=== PATIENT | male | born 1970 | race Caucasian/White ===

== ENCOUNTER 2017-02-14 20:12 | Emergency (ER) | payer MEDICAID ==
[~2017-02-14 20:12] MED LIST: ALBUTEROL INHALER IH; ASA325 MG PO; CHANTIX1 MG PO; COREG DPS12.5 MG PO; DESYREL DPS150 MG PO; DULERA 100/58.8 GM IH; IMDUR DPS60 MG PO; LIPITOR DPS40 MG PO; MIRALAX PACKET17 GM PO; NITROSTAT0.4 MG SL; OXY-CONTIN10 MG PO; PLAVIX75 MG PO; PROTONIX40 MG PO; PROVENTIL HFA6.7 GM IH; RANEXA500 MG PO; RISPERDAL2 MG PO; SPIRIVA18 MCG IH; XANAX DPS1 MG PO; ZANTAC DPS150 MG PO; ZESTRIL DPS5 MG PO; ZOLOFT DPS100 MG PO
--- NOTE | 2017-02-15 19:25 | ER ---
ADMIT: 02/14/2017 RM/LOC: ER [facility] MR#: [id number] [address] [facility] [address] [place], [place] [address] RONNI ELICEO Laureano [address] [facility] [address] [place] [address] Emergency Room Report SEX: M AGE: 46 : 1970 DATE: 02/14/2017 ADDENDUM: This patient comes to the ER because he has had swelling in both of his legs over the last 2 days. He has had a history of having CHF, and in the past, I had him on Lasix, but he is no longer taking that. He states he has shortness of breath all the time due to his heart issues and he does have shortness of breath now, but it is his normal shortness of breath. PHYSICAL EXAMINATION: EXTREMITIES: On physical exam, he does have +2 edema in his lower legs. LUNGS: His lungs are clear. ABDOMEN: His abdomen is soft. He answers questions and speaks appropriately. His chest x-ray did show increased fluid consistent with CHF. His white count was normal. Hemoglobin was 12.0. I originally wanted to start an IV and give him Lasix, however, he refused the IV and would just like to go home with Lasix, he was given 60 mg in the ER. I consulted with Dr. Bishop concerning treatment of this patient, I wrote a prescription for Lasix 60 mg daily x5 days and potassium 40 mEq 1 tab po daily x1 week. He is to follow up with Dr. Zhou , NORA Price / Carlos Peter MD / modl JOB #: [id number] CC: Carlos Peter MD, Attending Physician Edvin Zhou MD, Family Physician
[2017-05-13] MEDS ORDERED: DESYREL DPS150 MG PO (11:13)
[2017-05-13] MEDS ORDERED: LAMISIL250 MG PO (11:14)
[2017-05-13] MEDS ORDERED: MONTELUKAST SOD10 MG PO (11:22)
[2017-05-13] MEDS ORDERED: ASA325 MG PO (11:26)
== END 2017-02-14 22:30 | disposition home or self-care (01) ==
LOC: ER 20:12
DX: I11.0 Hypertensive heart disease with heart failure (principal); I50.9 Heart failure, unspecified; I10 Essential (primary) hypertension; R60.0 Localized edema; Z88.0 Allergy status to penicillin; Z79.82 Long term (current) use of aspirin; Z79.899 Other long term (current) drug therapy

== ENCOUNTER 2017-02-21 13:52 | Inpatient (IN) | payer MEDICAID ==
[~2017-02-21] VITALS: Ht 193 cm; Wt 107.3 kg
--- NOTE | ~2017-02-21 | ECH ---
Transesophageal Echocardiography Report (MATT) Demographics Patient Name ELICEO RUDOLPH Date of Study 02/25/2017 Patient Number [id number] Visit Number [id number] Date of 1970 Room Number 402 Accession Number [id number] Gender Male Age 46 year(s) Referring Abelardo Mckenzie MD Health And Safety Coordinator Ana Villatoro Physician Hilaria Mc MD [facility] Physician Interpreting Jamila Mccallum Gore Cutter Physician MD Supervising Ordering Physician Ableardo Mckenzie MD/EUGENIE SÁNCHEZ Nurse Stress [place] Demonstrator Conclusions Summary Informed consent obtained. Transesophageal echocardiogram was done under moderate sedation . Left ventricular EF is 50% There is no thrombus in the left atrial appendage. Informed consent was obtained, bubble study was done, there is no evidence for a PFO or ASD. Mild mitral regurgitation by color Doppler. Mild tricuspid regurgitation by color Doppler. Mild atheroma noted in the descending aorta. No evidence of endocarditis. Procedure Type of Study MATT procedure:MATT SF. Procedure Date Date: 02/25/2017 Start: 09:58 AM Technical Quality: Adequate visualization Indications:CVA and pacemaker/defibrillator. Additional Indications:Bacteremia Appropriate Use Criteria: 9 Height: 76 inches Weight: 247 pounds BSA: 2.42 m Rhythm: Within normal limits HR: 71 bpm BP: 143/86 mmHg O2 Saturation: 95 % MATT Performed By: Jacky Marino MD Type of Anesthesia: Moderate sedation Allergies - Penicillin. Findings Left Atrium There is no thrombus in the left atrial appendage. Informed consent was obtained, bubble study was done, there is no evidence for a PFO or ASD. Mitral Valve Normal mitral valve structure and function. Mild mitral regurgitation by color Doppler. Aortic Valve Normal aortic valve structure and function. Tricuspid Valve Normal tricuspid valve structure and function. Mild tricuspid regurgitation by color Doppler. Pulmonic Valve The pulmonic valve is not well visualized. Miscellaneous Mild atheroma noted in the descending aorta. Contractility Score LV regional wall motion:(0-Non visualized 1-Normal 2-Hypokinesis 3-Akinesis 4-Dyskinesis 5-Aneurysm) Signature
--- NOTE | ~2017-02-21 | ECH ---
Transthoracic Echocardiography Report (TTE) Demographics Patient Name ELICEO RUDOLPH Date of Study 02/22/2017 Patient Number [id number] Visit Number [id number] Date of 1970 Room Number 402 Accession Number [id number] Gender Male Age 46 year(s) Referring Abelardo Mckenzie MD Meter Installer And Remover Ruba Coley [facility] Physician Physician Interpreting Sierra Cuevas MD Chemical Supervisor Physician Supervising Ordering Physician Abelardo Mckenzie MD/EUGENIE SÁNCHEZ Nurse Stress Outboard System Operator Conclusions Summary Technically fair exam. The estimated left ventricular ejection fraction is 50-55%. Mild to moderate left ventricular hypertrophy. Mild tricuspid regurgitation by color Doppler. There is mild pulmonary hypertension. The pulmonary pressure (RVSP) is 41 mmHg. Trivial pulmonic valve regurgitation by color Doppler. Procedure Type of Study TTE procedure:Echo Complete SF. Procedure Date Date: 02/22/2017 Start: 08:22 AM Technical Quality: Fair due to body habitus. Indications:Shortness of breath, Hypotension, Coronary artery disease and Ischemic Cardiomyopathy. Appropriate Use Criteria: 9 Height: 76 inches Weight: 247 pounds BSA: 2.42 m Rhythm: Within normal limits HR: 81 bpm BP: 121/69 mmHg Allergies - Penicillin. M-Mode/2D Measurements LV Diastolic Dimension: 5.52 cm LV Systolic Dimension: 4.05 cm LV Septum Diastolic: 1.31 cm LV PW Diastolic: 1.51 cm AO Root Dimension: 2.83 cm Cardiac Output: 6.75 l/min LA Dimension: 3.76 cm Cardiac Index: 2.79 l/min*m RV Diastolic Dimension: 4.9 cm LA volume index: 31 ml/m LVOT: 2.17 cm LVOT VTI: 22.55 cm LV Stroke volume: 83.36 ml LV Stroke volume index: 34.45 ml/m Doppler Measurements AV Peak Velocity: 1.3 m/s MV Peak E-Wave: 0.93 m/s AV Peak Gradient: 6.76 mmHg MV Peak A-Wave: 0.62 m/s AV Mean Gradient: 3.83 mmHg MV E/A Ratio: 1.52 LVOT Peak Velocity: 1.31 m/s MV P1/2t: 51.7 msec AV Area (Continuity):3.62 cm MV Deceleration Time: 174 msec TR Velocity:3 m/s MV Area (PHT): 4.26 cm TR Gradient:36 mmHg PV Peak Velocity: 0.93 m/s Estimated RAP:5 mmHg PV Peak Gradient: 3.45 mmHg Estimated RVSP: 41 mmHg Estimated PASP: 41 mmHg Findings Left Ventricle The left ventricle is normal in size . Mild to moderate left ventricular hypertrophy. Diastolic assessment reveals normal relaxation. Right Ventricle Device lead noted in the right ventricle. Right ventricle not well seen. Left Atrium Normal left atrial size. Right Atrium Device lead seen in the right atrium. Mitral Valve Normal mitral valve structure and function. Mild mitral regurgitation by color Doppler. Aortic Valve Normal aortic valve structure and function. Tricuspid Valve Normal tricuspid valve structure and function. Mild tricuspid regurgitation by color Doppler. There is mild pulmonary hypertension. The pulmonary pressure (RVSP) is 41 mmHg. Pulmonic Valve Normal pulmonic valve structure and function. Trivial pulmonic valve regurgitation by color Doppler. Pericardial Effusion No evidence of pericardial effusion. Miscellaneous Visualized portions of the aortic root and ascending aorta appear normal in size. Pleural Effusion No evidence of pleural effusion. Contractility Score LV regional wall motion:(0-Non visualized 1-Normal 2-Hypokinesis 3-Akinesis 4-Dyskinesis 5-Aneurysm) Signature
--- NOTE | ~2017-02-21 | ECH ---
Transthoracic Echocardiography Report (TTE) Demographics Patient Name ELICEO RUDOLPH Date of Study 02/23/2017 Patient Number [id number] Visit Number [id number] Date of 1970 Room Number 402 Accession Number [id number] Gender Male Age 46 year(s) Referring Abelardo Mckenzie MD Leather Skinner Ana Villatoro Physician [facility] Physician Interpreting Cee SÁNCHEZ Advanced Practice Rn Physician Garth Supervising Ordering Physician Abelardo Mckenzie MD/EUGENIE SÁNCHEZ Nurse Stress Coroner'S Juror Conclusions Summary Limited exam for bubble study only. Bubble study was done, there is no evidence for a PFO or ASD. Recommendation The patient will be given the results of this study by the physician who ordered the exam. Procedure Type of Study TTE procedure:Echo Limited SF. Procedure Date Date: 02/23/2017 Start: 10:27 AM Technical Quality: Good visualization Additional Indications:Right sided weakness Appropriate Use Criteria: 9 Height: 76 inches Weight: 247 pounds BSA: 2.42 m Rhythm: Within normal limits HR: 67 bpm BP: 135/84 mmHg Allergies - Penicillin. Findings Left Atrium Informed consent was obtained, bubble study was done, there is no evidence for a PFO or ASD. Contractility Score LV regional wall motion:(0-Non visualized 1-Normal 2-Hypokinesis 3-Akinesis 4-Dyskinesis 5-Aneurysm) Signature
--- NOTE | 2017-02-24 17:26 | CO ---
ADMIT: 02/21/2017 RM/LOC: 402 [facility] MR#: [id number] [id number] [place], [place] [address] ELICEO RUDOLPH [address] [facility] [address] [place] [address] Consultation SEX: M AGE: 46 : 1970 DATE OF CONSULTATION: 02/23/2017 ATTENDING PHYSICIAN: Edvin Zhou CONSULTING PHYSICIAN: Osmany Stubbs MD REASON FOR CONSULTATION: Stroke alert. HISTORY OF PRESENT ILLNESS: The patient is a 46-year-old gentleman, who developed right-sided weakness, slurred speech, and some numbness, last time normal was 7:15, stroke was paged out at 8:22 a.m. On initial examination, the patient has truly dysarthria and appears to be numbness on right side. The weakness is already resolved, however, it is limited examination because of the right lower extremity pain. The patient is not a tPA candidate secondary to ongoing sepsis and thrombocytopenia. Platelet count is 67,[address] of the head did not show any acute changes. The patient was admitted for sepsis, so far no known sores. He has gram- negative rods in blood culture. His urine grows gram-positive organism, however. As there is extreme radicular pain to the right leg, there is suspicion that he could have epidural abscess. However, the patient was on aspirin and Plavix. Therefore, a myelogram can be obtained. The MRI cannot be performed secondary to pacemaker. The patient is allergic to penicillin. PAST MEDICAL HISTORY: Ischemic cardiomyopathy, AICD with pacemaker, coronary artery disease, COPD, heart failure, anxiety, depression, hyperlipidemia, and cardiac arrhythmias. PAST SURGICAL HISTORY: Coronary artery bypass grafting, right shoulder replacement, herniorrhaphy, tonsillectomy, and bilateral knee arthroscopy. SOCIAL HISTORY: No smoking or drinking alcohol. He used to smoke up until September 2016. FAMILY HISTORY: Noncontributory to current presentation. REVIEW OF SYSTEMS: Deferred. PHYSICAL EXAMINATION: VITAL SIGNS: Temperature 100.8, 74 heart rate, respirations 18, blood pressure 118/75, and saturation 92% on room air. GENERAL: The patient is in moderate discomfort secondary to right lower extremity pain and back pain. HEAD: Normocephalic. NECK: Fairly supple. CHEST: Normal respiratory rises. CARDIOVASCULAR: Regular rate. ABDOMEN: Obese. EXTREMITIES: No clubbing or cyanosis. ADMIT: 02/21/2017 RM/LOC: 402 [facility] MR#: [id number] [address] [address] ELICEO RUDOLPH [address] [facility] [address] [place] [address] Consultation SEX: M AGE: 46 : 1970 NEUROLOGICAL EXAMINATION: The patient is awake and alert. He appears to be slightly slower. His speech is dysarthric, language is normal. Visual aldana are normal. Extraocular muscles are free. Pupils are reactive, round, and symmetric. Facial sensation, the patient reports 50% abduction on the right side of the face in V1, V2, and V3 distribution. Face is symmetric. Hearing to voice intact. Uvula midline. Shoulder shrug symmetric. Tongue midline. Motor examination reveals no drift in upper extremities and left lower extremity. Right lower extremity unable secondary to severe pain. Coordination is normal with both upper extremities. Sensory reduction to touch on the right side about 50% level. Gait deferred as the patient is unable to walk at this time. LABORATORY DATA: Procalcitonin is 7.98. Lactic acid is 1.2. CBC shows white count 4.5, hemoglobin 11.3, and platelet count 67. Basic metabolic panel shows calcium 7.5, creatinine 1.0, and phosphorus inorganic is 1.4. CT of the head discussed above. ASSESSMENT: Likely ischemic stroke in a patient with multiple risk factors and concurrent sepsis. The worry is whether this is septic embolism causing the ischemia. RECOMMENDATIONS: We will obtain CTA of the head and neck, and I recommend ID consultation for broad-spectrum antibiotic and coverage for CSF penetrance. He might need a MATT to rule out valvular vegetations. A difficult situation is about his secondary stroke prevention in the setting of sepsis and the need for lumbar puncture/myelogram. The only way through it would be to use low dose heparin per protocol without a bolus. The patient needs to be monitored very closely while receiving anticoagulation. The aspirin and Plavix can be placed on hold while he is on a heparin drip. Thank you very much for this interesting consultation. We will continue to follow along. Osmany Stubbs MD/ meri JOB #: [id number] CC: Edvin Zhou, Attending Physician Edvin Zhou, Family Physician
--- NOTE | 2017-02-28 01:20 | ER ---
ADMIT: 02/21/2017 RM/LOC: ER [facility] MR#: [id number] [address] [facility] [address] [place], [place] [address] ELICEO RUDOLPH [address] [facility] [address] [place] [address] Emergency Room Report SEX: M AGE: 46 : 1970 DATE: 02/21/2017 ADDENDUM: See T-sheet for complete H and P addendum. A 46-year-old male with history of significant coronary artery disease with stents and bypass in the past and COPD, presents with increasing shortness of breath and new back pain in his right buttock region. States that this morning, he got up to use the restroom and felt weak and had to stop on his way to the restroom because he almost felt like he was going to collapse due to generalized weakness. The symptoms have persisted since onset this morning, more noticeable when he stands up. Because of the pain in his buttock, he did call EMS who came to evaluate and possibly transport, and they checked his vital signs, his blood pressure was low and they brought him to the ER. He states that he is not having any chest pain whatsoever, but does feel a little more short of breath and dyspneic on exertion. He states he has had some fevers and chills with sweating this morning, but other than some mild cough, he is not having any production with the cough. Denies any change in bowel or bladder function. We did a sepsis routine on the patient as he was hypotensive when he arrived. His CBC was normal. Chemistries were unremarkable with a creatinine of 1.5 and a BNP of 810. His cardiac enzymes are negative x1. CRP was 2.38, procalcitonin is 14.49, lactic acid of 4, and an INR of 1.03. His urine was quite dark, but only showed 1+ protein, and trace leukocyte esterase. EKG showed sinus rhythm, rate of 73. There was some inverted T-waves in III and aVF. Chest x-ray showed nothing acute, and CT of lumbar spine was negative for any acute abnormalities. We did do the 30 mL/kg fluid resuscitation for the patient and his blood pressure did improve in the ER. I got him a dose of Levaquin, but I am not sure of possible source of infection at this time. I spoke to Dr. Zhou, who is the patient's primary care physician. We will be admitting the patient to further evaluate his underlying illness. DIAGNOSES: 1. Shortness of breath. 2. Back pain. 3. Sepsis. 4. Lactic acidosis. 5. Hypotension. Mihir Ribeiro MD/ modl JOB #: [id number] CC: Gualberto Martines MD, Attending Physician Edvin Zhou MD, Family Physician
--- NOTE | 2017-03-05 07:27 | CO ---
ADMIT: 02/21/2017 RM/LOC: 402 [facility] MR#: [id number] [address] [facility] [address] [place], [place] [address] ELICEO COKER [address] [facility] [address] [place] [address] Consultation SEX: M AGE: 46 : 1970 DATE OF CONSULTATION: 02/22/2017 ATTENDING PHYSICIAN: Edvin Zhou CONSULTING PHYSICIAN: Tyrone Espinoza MD REASON FOR CONSULT: Back pain with radicular symptoms. PAST MEDICAL HISTORY: Coronary artery disease, ischemic cardiomyopathy, AICD and pacemaker, COPD, heart failure, anxiety, depression, GERD, hyperlipidemia, cardiac arrhythmias, coronary artery bypass grafting, right shoulder replacement, herniorrhaphy x3, tonsillectomy, hemorrhoidectomy, and bilateral knee arthroscopy. ALLERGIES: PENICILLIN. SOCIAL HISTORY: He is disabled and lives with his girlfriend. He does not drink or smoke, utilizes drugs of abuse. He quit tobacco in September of 2016 due to smoking 2 to 3 packs a since then. FAMILY HISTORY: No history of neurosurgical disease. REVIEW OF SYSTEMS: Complete review of systems was obtained and found to be negative with the exception of the annotations preceding the segment of the document. PHYSICAL EXAMINATION: VITAL SIGNS: 97.7 degrees, 86 beats, 20 respirations, 96/60, and 92% on room air. GENERAL: He looks significantly older than his stated age. HEENT: He has an atraumatic head. No scleral icterus. Clear oropharynx. LUNGS: Normal respiratory excursion. ABDOMEN: Nontender abdomen. EXTREMITIES: 2+ radial pulses. NEUROLOGICAL: MENTAL STATUS: He is awake, alert, and oriented x4. He has no dysphonia, dysarthria, or aphasia. His affect is appropriate. His thought content is normal. CRANIAL NERVES: Cranial nerves II through XII are individually tested and found to be intact without deficit. MOTOR: Motor exam reveals 5/5 strength, although he really is not able to perform much with the right leg. I cannot tell there is purely break away weakness because it does not involve the entirety of the leg or whether this is a radiculopathy. SENSATION: Intact to light touch. DEEP TENDON REFLEXES: 2/4 in the upper extremities and left leg and 1/4 in the right leg. CEREBELLAR: No cerebellar signs. GAIT: Severely antalgic just moving from the wheelchair to the bed. ADMIT: 02/21/2017 RM/LOC: 402 [facility] MR#: [id number] [address] [facility] [address] [place], [place] [address] RONNIELICEO MCMAHAN [facility] [facility] [address] [place] [address] Consultation SEX: M AGE: 46 : 1970 HISTORY OF PRESENT ILLNESS: Mr. Coker is a very pleasant gentleman, who was brought to the ER by ambulance for generalized weakness, fever, or chills, low back pain, it is new onset radiating into his right buttock and thigh. He does not have bowel or bladder incontinence. He said it hurts so bad that he can barely move his right leg. ASSESSMENT AND PLAN: Mr. Coker is a very pleasant gentleman. He has a blood cultures and gram-negative rods. His white count is low. He has a high CRP and normal sedimentation rate. I do not think there is a component of osteomyelitis. He is unable to get an MRI to evaluate for epidural abscess, although he is being treated medically already for infection, and as such, I would continue on with that. When he has been off blood thinners for an appropriate amount time, I would have Radiology perform a CT myelogram. I obtained flexion-extension films today, which do not really show much in the way of offset in the lumbar spine. He has severe degenerative change throughout the lumbar spine on the CT scan performed yesterday. I will definitely start him on some physical therapy and having him get epidural steroid injection if warranted, although I shared there will be a few days before he is a candidate for the myelogram. Thank you for this consultation. Tyrone Espinoza MD/ meri JOB #: [id number] CC: Edvin Zhou, Attending Physician Edvin Zhou, Family Physician
--- NOTE | 2017-03-05 16:52 | HP ---
ADMIT: 02/21/2017 RM/LOC: 402 [facility] MR#: [id number] [id number] [place], [place] [address] ELICEO COKER 15[address] [facility] [address] [place] [address] History and Physical SEX: M AGE: 46 : 1970 DATE OF SERVICE: 02/21/2017 HISTORY OF PRESENT ILLNESS: Mr. Coker is a 46-year-old man with past medical history significant for coronary artery disease and ischemic cardiomyopathy, status post PCI as well as bypass, AICD placed in 2011, COPD, heart failure with reduced EF, anxiety and depression, hyperlipidemia, GERD, who presents to our Emergency Department with right buttock and back pain as well as increased shortness of breath and generalized weakness. He states that he has been having headaches off and on for the last 2 weeks and has had some relief with ibuprofen. He thinks that the headaches are starting to become less frequent since taking ibuprofen for the last several days. He denies any changes to vision or hearing. He states that the headaches typically originate at the base of his skull and radiate into the occipital region and then over to the front of his head just above his eyes. He then noted this morning he woke up at 5:00 a.m. and felt very chilled with some pain in the right buttock. He states that he got up and went to the living room around 8:00 a.m., but had spent the hours between 5:00 and 8:00 in bed and was very warm. He is not sure if he had a fever during this time as he did not take his temperature. He states that he then proceeded to go from the living room to the bathroom and felt like he was going to pass out because of some generalized weakness in his lower extremities. He tells me that he had to hold himself up with his hands along the wall when he went to use the restroom. He states that when he used the restroom, his urine was clear this morning and he notes that since he got to the emergency room and urinated, it had been dark in color. He also tells me that he has had some increasing shortness of breath throughout the day. He tells me that recently he went to his PCP and was prescribed furosemide approximately 1 hour ago because he is noted to have some swelling in his legs as well as hands. He states that with the Lasix, he did have 1 episode of urinary incontinence until last week. Otherwise, he denies any other additional urinary incontinence. He tells me that regularly has blood in his stools secondary to his hemorrhoids. He did have a hemorrhoidectomy several years ago, but continuous to have some blood with passage of each stool. He denies the amount of blood having increased. He tells me that he has not had a bowel movement for several days and he typically has 1 bowel movement once a day. He tells me that he has been able to drink and eat normally until today when he developed some nausea as well as poor appetite. He tells me that he did not vomit. He denies any abdominal pain. He tells me that with this right buttock pain he feels like his right leg is dragging. He denies any other stroke symptoms such as difficulty speaking, weakness anywhere else in his body, changes in hearing or changes in vision. No recent travel and no new exposures to animals. He also denies exposure to any chemicals such as pesticides or herbicides. Documenting of what was done in the emergency room, he was noted to be quite hypotensive upon arrival. He was screened for the sepsis protocol and screened positive. He received the DuoNeb as well as some Levaquin, morphine, Ativan, and Dilaudid. He also received approximately 3.2, 5 L of normal saline over a course of 2 hours. He did not have rapid improvement in his vital signs, but when he left the emergency room, his blood pressure was noted to be 116/64. ADMIT: 02/21/2017 RM/LOC: 402 [facility] MR#: [id number] [address] [address] ELICEO COKER [address] [facility] [address] [place] [address] History and Physical SEX: M AGE: 46 : 1970 REVIEW OF SYSTEMS: A complete review of systems was completed for this encounter. Please see the history of present illness for pertinent positives and negatives. PAST MEDICAL HISTORY: 1. Coronary artery disease, ischemic cardiomyopathy, status post PCI and bypass. 2. Cardiac arrhythmias, status post AICD in 2011. 3. Chronic heart failure with reduced EF is listed on his past medical, although he did have an echocardiogram in 2015, that demonstrated an EF of 50% with mild global hypokinesis. 4. COPD, unsure what stage his COPD is. 5. Anxiety and depression. 6. GERD. 7. Hyperlipidemia. PAST SURGICAL HISTORY: 1. Status post sternotomy for bypass as well as PCI placement. 2. AICD placed in 2011. 3. Right shoulder replacement. 4. Three hernia repairs. 5. Tonsillectomy. 6. Hemorrhoidectomy. 7. Bilateral arthroscopy of his knees. HOME MEDICATIONS: Include: 1. Nitroglycerin as needed. 2. Isosorbide mononitrate extended release 30 mg p.o. daily. 3. Atorvastatin 40 mg p.o. daily. 4. Clopidogrel 75 mg p.o. daily. 5. Aspirin 325 mg p.o. daily. 6. Zoloft 100 mg p.o. daily. 7. Ranexa 100 mg p.o. b.i.d. 8. Coreg 37.5 mg p.o. b.i.d. 9. Trazodone 150 mg p.o. at bedtime. 10.Alprazolam 1 mg p.o. t.i.d. 11.Risperidone at bedtime. 12.Ranitidine 150 mg p.o. at bedtime. 13.Proventil inhaler two puffs q.4 hours p.r.n. 14.Dulera 100/5 mcg two puffs b.i.d. 15.Spiriva daily. 16.Albuterol 0.083% q.6 hours. ALLERGIES: INCLUDE PENICILLIN. FAMILY MEDICAL HISTORY: Has a strong family history for heart disease, including myocardial infarction in mother, father, and brother as well as some diabetes. He has children who are currently healthy. ADMIT: 02/21/2017 RM/LOC: 402 [facility] MR#: [id number] 26[address] [facility] [address] [place], [place] [address] ELICEO COKER [address] [facility] [address] [place] [address] History and Physical SEX: M AGE: 46 : 1970 SOCIAL HISTORY: Tobacco use, he quit smoking cigarettes on 09/23/2016. He previously was smoking 2 to 3 packs per day for a total of 40 years. He denies any alcohol use. He denies any drug use. 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 He currently lives [place], with his partner Laura. He considers Laura to be his DPOA. It is noted they have only been together for about 1 year. PHYSICAL EXAMINATION: VITAL SIGNS: On admission to the floor, the patient's vital signs were; temperature of 101.9, heart rate of 95, blood pressure of 116/64, respiration rate of 26, SpO2 of 94% on room air. GENERAL: He is alert and oriented. He appears to be in [id number] distress. Most of this is secondary to pain. HEENT: Head is normocephalic, atraumatic. Hearing is intact to conversation. Eyes have extraocular muscles that are intact. He does not have any scleral icterus or abnormal conjunctiva. He does have dry mucous membranes. HEART: As far as can be told, he has a regular rate and rhythm without any murmurs noted. Lung sounds dominate auscultation of the chest. LUNGS: He has loud both inspiratory and expiratory multiphonic wheezing throughout. ABDOMEN: Distended with adiposity. He has no abnormalities noted on percussion. He does have some pain in the right and left lower quadrant as well as suprapubic area with palpation. Pain is not out of proportion to exam. EXTREMITIES: He does have some pain just to the right lateral area of his L- spine, predominantly over the L3-L4-L5 region. He has pain with palpation over the right buttock in midline. There is no evidence of abscess in either of these locations. The skin is intact. There is no evidence of herpes zoster. There is no evidence of cellulitis. He also has pain that radiates from the right buttock into his medial thigh. Otherwise, he can move all extremities equally without difficulties. SKIN: He has multiple areas of tattoos. None of these appear to be infected. Skin is otherwise intact. PSYCH: He appears depressed with appropriate affect for that is taking place. LABORATORY DATA: On admission; he had a white blood cell count of 7.1 with an ANC of 6.8, hemoglobin of 14, platelets of 113. Sodium of 134, potassium of 4.5, bicarb of 22, BUN of 18, creatinine of 1.5 up from baseline of 1.1, magnesium of 1.8, phosphorus of 1.0, albumin of 3.9, AST and ALT 22, his lactic acid was initially 4.0 and downtrended to 3.0, his BNP was 810, his procalcitonin was 14.49, INR of 1, CRP of 2.38, and troponin is negative x1. Microbiology: Urine culture as well as blood cultures pending. He did have a UA that demonstrated leukocyte esterase with hyaline casts and 1+ protein. IMAGING: Had a CT of the L-spine without contrast that showed facet ADMIT: 02/21/2017 RM/LOC: 402 [facility] MR#: [id number] [address] [address] ELICEO COKER [facility] [address] History and Physical SEX: M AGE: 46 : 1970 degenerative changes, alignment was normal, it did have some disk bulging and stenosis at L3-4 as well as anterior thecal sac not complete expulsion disk bulge. Anterior thecal sac bulge at L4-5 is also noted to have an aortic aneurysm of 2.9 cm. He had an EKG that demonstrated T-wave inversion in lead III and aVF. He had a chest x-ray that did demonstrate decreased right pleural effusion and increased aeration throughout. ASSESSMENT AND PLAN: Mr. Coker is a 46-year-old man with past medical history significant for chronic obstructive pulmonary disease as well as ischemic cardiomyopathy, status post stents, bypass, and automated implantable cardioverter-defibrillator, who presents with right buttock and back pain, some increased shortness of breath and generalized weakness accompanied by presumed fevers and chills, admitted for septic shock. 1. Septic shock. The patient meets sepsis criteria based off his temperature of 101.9, heart rate of 95, and respiration rate of 26. At this point in time, the source is unknown as we do not suspect pneumonia based off his chest x-ray. He does not have any evidence of an abscess on CT of his back. He meets the criteria for shock with demonstration of acute end-organ dysfunction with lactic acid of 4 and a creatinine of 1.5 up from baseline of 1.1 as well as some difficulties with fluid resuscitation. At this point in time, we will start him broad-spectrum antibiotics. Given his allergy to penicillin, we will place him on vancomycin with dosing to be obtained by pharmacy consult given his renal function and cefepime 1 g IV q.6 hours. We will continue to trend his lactate until normal and will provide an additional fluid bolus of 2 L at this point in time. We will start him on maintenance IV fluids at 150 mL/hour of normal saline. We will follow up on his urine cultures as well as his blood cultures. We will also obtain further imaging of his lumbar spine since where most of the pain is to further rule out the presence of an occult soft tissue abscess or possible osteomyelitis of the spine. 2. Dyspnea with wheezing. This could be chronic obstructive pulmonary disease exacerbation or could be related to the amount of fluids that he has recently received. We will continue to keep an eye out on this. The antibiotic selected should cover respiratory pathogens at this point. We will repeat a chest x-ray in the morning to look for possible blooming pneumonia. We will place him on DuoNebs at this point in time as needed for wheezing and shortness of breath. We will also continue his Dulera and Proventil. We will hold the Spiriva given the ipratropium and the DuoNeb solution. If he decompensates overnight and has increased work of breathing, we will consider repeat chest x-ray at that point in time and needs a possible intubation. 3. Acute right lower back pain with radiation to the right buttock and the right medial thigh. This sounds a bit like sciatica, however, given the extent of it and the severity, differential also includes spinal abscess, spinal osteomyelitis, occult soft tissue abscess, and possible cauda equina syndrome or other spinal cord compression syndrome. We will obtain the MRI as above to further evaluate these potential etiologies. ADMIT: 02/21/2017 RM/LOC: 402 [facility] MR#: [id number] [address] [place] [id number] ELICEO COKER [address] [place] [address] History and Physical SEX: M AGE: 46 : 1970 We will consider the lumbar puncture in the setting of him also having a 2-week history of headache. Other symptoms that could suggest a neurological pathology would be the fact that he has had an episode of urinary incontinence within the last week as well as constipation and generalized weakness of the lower extremities, but more so in the right compared to the left. 4. Acute kidney injury could be secondary to poor PO intake over the last 24 hours or related to his sepsis. Baseline creatinine is apparently 1.1, and it is currently up to 1.5 at this point in time. We will continue to monitor. He will be receiving an extensive amount of fluids over the next 24 hours with approximately a total of 5 L. We will renally dose antibiotics. 5. Hypophosphatemia. Again, suspect that this related to low PO intake, however, we will continue to monitor. We will provide him with 1.5 mmol/kg of IV sodium phosphorus at this time and recheck a phosphorus level in the morning. 6. History of ischemic cardiomyopathy, status post percutaneous coronary intervention as well as bypass and automated implantable cardioverter- defibrillator. We will hold the Imdur, clopidogrel, aspirin, Coreg at this time as his blood pressures have been low. There is also the possibility that he maybe be obtaining an LP in the setting of him having the headache for the last 2 weeks. We will resume these medications as soon as possible. 7. Hyperlipidemia. We will continue the atorvastatin. 8. Gastroesophageal reflux disease. We will continue the ranitidine at this point in time. 9. Chronic obstructive pulmonary disease. We will continue the Dulera as well as the albuterol inhaler and add DuoNebs at this point in time. We will continue to monitor his respiratory function. 10.Anxiety and depression. He is screened positive for depression and will be monitored or checked in on every 15 minutes while here in the PCU. We will continue the Zoloft as well as trazodone and alprazolam and risperidone at this point in time. Should he have further respiratory distress, the first medication to cut from this list would be the alprazolam. 11.For deep vein thrombosis prophylaxis, we will provide him with SCDs as well as ANG brito at this point in time. We will hold Lovenox given the setting that we may perform an LP in the future. Aleida Murry MD Resident / Edvin Zhou MD / meri JOB #: [id number] CC: Edvin Zhou, Attending Physician Edvin Zhou, Family Physician
[2017-03-05] MEDS ORDERED: CIPRO DPS500 MG PO (20:02)
[2017-03-05] MEDS ORDERED: NITROSTAT0.4 MG SL (20:02)
[2017-03-05] MEDS ORDERED: ATORVASTATIN CA80 MG PO (20:02)
[2017-03-05] MEDS ORDERED: CARVEDILOL25 MG PO (20:03)
[2017-03-05] MEDS ORDERED: PLAVIX75 MG PO (20:03)
[2017-03-05] MEDS ORDERED: RANEXA1000 MG PO (20:03)
[2017-03-05] MEDS ORDERED: ZOLOFT DPS100 MG PO (20:03)
[2017-03-05] MEDS ORDERED: XANAX DPS1 MG PO (20:04)
[2017-03-05] MEDS ORDERED: DESYREL DPS150 MG PO (20:04)
[2017-03-05] MEDS ORDERED: PROVENTIL HFA6.7 GM IH (20:05)
[2017-03-05] MEDS ORDERED: RISPERDAL2 MG PO (20:05)
[2017-03-05] MEDS ORDERED: ZANTAC DPS150 MG PO (20:05)
[2017-03-05] MEDS ORDERED: SPIRIVA18 MCG IH (20:06)
[2017-03-05] MEDS ORDERED: KLOR-CON M2020 ME1 PO (20:06)
[2017-03-05] MEDS ORDERED: DULERA 100/58.8 GM IH (20:06)
[2017-03-05] MEDS ORDERED: ACCUNEB DP0.63 MG/3 IH (20:06)
[2017-03-05] MEDS ORDERED: NEURONTIN DPS300 MG PO (20:07)
[2017-03-05] MEDS ORDERED: MIRALAX PACKET17 GM PO (20:07)
[2017-03-05] MEDS ORDERED: MILK OF MAGNESI10 ML PO (20:07)
[2017-03-05] MEDS ORDERED: MS CONTIN DPS15 MG PO (20:07)
[2017-03-05] MEDS ORDERED: SENOKOT DPS8.6 MG PO (20:07)
[2017-03-05] MEDS ORDERED: OXY IR DPS5 MG PO (20:08)
[2017-03-05] MEDS ORDERED: TOPAMAX DPS25 MG PO (20:08)
--- NOTE | 2017-03-07 08:54 | DS ---
ADMIT: 02/21/2017 RM/LOC: 402 [facility] MR#: [id number] [address] [facility] [address] [place], [place] [address] ELICEO RUDOLPH 1524 [facility] [address] [place] [address] Discharge Summary SEX: M AGE: 46 : 1970 ADMISSION DATE: 02/21/2017 DISCHARGE DATE: 03/05/2017 REASON FOR ADMISSION: This is a 46-year-old gentleman who presented with severe pain in his right buttock causing him not to move. It came on rather suddenly so he was admitted for this. FINAL DIAGNOSES: 1. Right buttock pain. 2. Right trochanteric bursitis. 3. History of coronary artery disease. 4. TIA (transient ischemic attack). 5. Chronic systolic congestive heart failure. 6. COPD (chronic obstructive pulmonary disease). 7. Anxiety/depression. 8. Hyperlipidemia. 9. History of arrhythmias, status post AICD (Automatic Implanted Cardiac Defibrillator). 10.Serratia bacteremia. HOSPITAL COURSE: The patient was admitted with a fever and not feeling well and having severe buttock pain. He was put on antibiotics and it is felt that he may have an epidural abscess given his radicular type pain into his butt and right leg along with a fever. Because he had a pacemaker, could not do an MRI. CT scan of his lumbar spine was unremarkable as well as CT scan of the hip and pelvis area were unremarkable. So he was set up for a CT myelogram. Unfortunately, had to stop his Plavix and aspirin for that. So after he had been off of those about two days, he developed some slurred speech and some weakness. There was some question about whether this was a TIA or if it was related to some pain medication and somnolence from that. Neurology was consulted. He was treated as a CVA/TIA. He was ultimately put on a heparin ADMIT: 02/21/2017 RM/LOC: 402 [facility] MR#: [id number] 26[address] [facility] [address] [place], [place] [address] ELICEO RUDOLPH [address] [facility] [address] [place] [address] Discharge Summary SEX: M AGE: 46 : 1970 drip while we held his aspirin and Plavix. So we held those for the specified number of days, controlled his pain, had PT and OT work with him and then ultimately he had a CT myelogram. Fortunately, this myelogram was normal. So after that, he was set up for an epidural steroid injection as well as injection for the trochanteric bursa. Initially, we thought he was going to have to be set up to go to skilled care but he did make some pretty markedly improvement over the last day he was in the hospital. His aspirin and Plavix were restarted. By day of discharge, he was getting up and moving around without much assistance with minimal pain. He was put on some long-acting morphine with 15 mg b.i.d. and some oxycodone 5-10 mg q.6 hours p.r.n. Otherwise, we will maintain him on his same home medications otherwise. See discharge medication list for more information. Edvin Zhou MD/ anahy JOB #: [id number] CC: Edvin Zhou MD, Attending Physician Edvin Zhou MD, Family Physician
--- NOTE | 2017-03-11 15:53 | EEG ---
ADMIT: 02/21/2017 RM/LOC: 402 [facility] MR#: [id number] 2620 [facility] [address] [place], [place] [address] RONNI ELICEO Laureano 1524 [facility] [address] [place] [address] Inpatient EEG SEX: M AGE: 46 : 1970 DATE: 02/24/2017 EEG NUMBER: [id number] HISTORY OF PRESENT ILLNESS: The patient is a 46-year-old gentleman with history of ischemic stroke and amnesia. This is a routine 21-channel digital EEG recording performed on a cooperative patient, who was awake and drowsy and asleep in various portions of the study. The study is performed using the 10/20 international electrode placement system. During wakefulness, the background activity is fairly well organized, consisting of regular and symmetrical medium amplitude, 9 to 9.5 hertz activity seen posteriorly, which attenuates with eye opening. In addition, moderate amount of low-amplitude fast activity is seen anteriorly. During periods of drowsiness, there is generalized attenuation of the posterior dominant rhythm with appearance of medium amplitude 6 to 7 Hz activity seen bilaterally. During stage II non-REM sleep, vertex sharp transients, K complexes, and sleep spindles with frequency of 12 to 14 hertz were seen symmetrically over the central regions. There were no focal slowings nor epileptiform discharges seen in this recording. Hyperventilation was not performed secondary to recent stroke. Photic stimulation performed at 1 to 33 hertz frequency elicited bilateral occipital driving response. IMPRESSION: This is a normal awake and drowsy and asleep EEG recording. COMMENTS: Normal cardiac rhythms noted throughout this recording. Osmany Stubbs MD/ meri JOB #: [id number] CC: Edvin Zhou MD, Attending Physician Edvin Zhou MD, Family Physician
--- NOTE | 2017-03-22 10:26 | CO ---
ADMIT: 02/21/2017 RM/LOC: [address] [facility] MR#: [id number] [facility]#: [id number] [address] [facility] [address] [place], [place] [address] ELICEO COKER [address] [facility] [address] [place] [address] Consultation SEX: M AGE: 46 : 1970 DATE OF CONSULTATION: 02/23/2017 ATTENDING PHYSICIAN: Edvin Zhou CONSULTING PHYSICIAN: Willa Manrique MD REASON FOR CONSULT: Sepsis. Thank you, Dr. Zhou, for the consult and involving me in this patient's care. HISTORY OF PRESENT ILLNESS: Mr. Coker is a 46-year-old man with history of coronary artery disease, and ischemic cardiomyopathy, status post cardiac bypass and PCI. He presented to the ER with complaint of severe right buttock pain which started 2 days back. It was also associated with headache and photophobia. He also reported some chills at home and was noted to have fever while in the ER. He lives at home with his partner and has pet birds. Denies any recent travel, any tick bites, trauma, or any sick contact. During his hospital course, he was noted to have slurred speech today and droopy right eyelid, and a CT head was negative. He underwent a CT angiogram of head and neck, which is pending at this time. He was started on cefepime, and he continues to have fever while in the hospital. His admission blood cultures are growing gram-negative rods, pending identification. PAST MEDICAL HISTORY: 1. Coronary artery disease, status post stents. 2. Cardiac bypass. 3. Status post AICD in 2007. 4. CHF. 5. COPD. 6. Anxiety and depression. 7. Hyperlipidemia. 8. GERD. PAST SURGICAL HISTORY: 1. Right shoulder replacement. 2. Three hernia repairs. 3. Tonsillectomy. 4. Hemorrhoidectomy. ALLERGIES: PENICILLIN. CURRENT MEDICATIONS: Include: 1. Desyrel. 2. Lipitor. 3. MiraLax. 4. Pepcid. 5. Ranexa. 6. Risperdal. ADMIT: 02/21/2017 RM/LOC: [address] [facility] MR#: [id number] [address] [facility] [address] [place], [place] [id number] ELICEO COKER [address] [facility] [address] [place] [address] Consultation SEX: M AGE: 46 : 1970 7. Senokot. 8. Xanax. 9. Zoloft. 10.Dulera. 11.Spiriva. 12.Cefepime 1 g q.12 hours. FAMILY HISTORY: A strong family history of heart disease in his father and mother. SOCIAL HISTORY: He denies any smoking, alcohol, or recreational drug use at this time. He quit smoking in 2015. 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 REVIEW OF SYSTEMS: A 10-point review of systems negative except as mentioned in HPI. PHYSICAL EXAMINATION: VITAL SIGNS: T-max was 101.9, heart rate 64, respirations 18, blood pressure 111/69, and 93% on room air. GENERAL: No acute distress. HEENT: Head is normocephalic and atraumatic. Extraocular movements intact. LYMPH: No palpable anterior/posterior cervical or supraclavicular lymphadenopathy. CHEST: Decreased breath sounds bilaterally. Mild scattered wheezes. CARDIOVASCULAR: S1 and S2 heard. Regular rate and rhythm. ABDOMEN: Soft, obese, nontender. Active bowel sounds. SKIN: No rashes noted on exposed skin. NEURO: He has drooping of right eyelid. EXTREMITIES: Right lower extremity 2/5 strength. Left side 5/5 strength. Sensation decreased on the right leg. PSYCH: Normal affect. Memory intact. LABORATORY DATA REVIEW: His CBC today shows white count of 4.5, hemoglobin 11.3, platelets 67. BMP shows creatinine of 1. Low iron of 19. CRP of 14.7. Blood cultures are growing gram-negative rods. ASSESSMENT: 1. Sepsis secondary to gram-negative jaqueline bacteremia. 2. Gram-negative jaqueline bacteremia. 3. Right buttock pain. 4. Headache. 5. Thrombocytopenia. 6. Questionable cerebrovascular accident. 7. Coronary artery disease. ADMIT: 02/21/2017 RM/LOC: [address] [facility] MR#: [id number] [address] [place], [place] [address] ELICEO COKER [address] [facility] [address] [place] [address] Consultation SEX: M AGE: 46 : 1970 PLAN: I recommend doing a lumbar puncture. He has been on aspirin and Plavix, which is currently on hold. If the CSF is abnormal, then there is concern for epidural abscess. He cannot get an MRI given the AICD. He is scheduled for CT myelogram next week. At this time, I will stop his cefepime and broaden it to meropenem 2 g every 8 hours. The source for gram-negative jaqueline is unclear. We will await for final identification. CTA head and neck was done today and results are pending at this time. Given his high risk behaviors in the past, I will also check HIV test and hepatitis C antibody. We will also do peripheral smear as his counts are trending down. Thank you for the consult and I will continue to follow the patient. Willa Manrique MD/ meri JOB #: [id number] CC: Edvin Zhou, Attending Physician Edvin Zhou, Family Physician
[2017-05-13] MEDS ORDERED: DESYREL DPS150 MG PO (11:13)
[2017-05-13] MEDS ORDERED: LAMISIL250 MG PO (11:14)
[2017-05-13] MEDS ORDERED: MONTELUKAST SOD10 MG PO (11:22)
[2017-05-13] MEDS ORDERED: ASA325 MG PO (11:26)
== END 2017-03-05 14:30 | disposition home or self-care (01) | DRG 871 ==
LOC: ER 13:52 → 4PCU 14:25 → 3ICU 14:25 → 4PCU 22:54
PROVIDERS: ADMIT Internal Medicine
PROC: 4A10X4Z Monitoring of Central Nervous Electrical Activity, External Approach (ICD-10-PCS; principal; 2017-02-24)
PROC: B24BZZ4 Ultrasonography of Heart with Aorta, Transesophageal (ICD-10-PCS; 2017-02-25)
PROC: B01B1ZZ Fluoroscopy of Spinal Cord using Low Osmolar Contrast (ICD-10-PCS; 2017-03-02)
PROC: 009U3ZX Drainage of Spinal Canal, Percutaneous Approach, Diagnostic (ICD-10-PCS; 2017-03-02)
PROC: 3E0R33Z Introduction of Anti-inflammatory into Spinal Canal, Percutaneous Approach (ICD-10-PCS; 2017-03-04)
PROC: 3E0U3BZ Introduction of Anesthetic Agent into Joints, Percutaneous Approach (ICD-10-PCS; 2017-03-04)
PROC: B01B1ZZ Fluoroscopy of Spinal Cord using Low Osmolar Contrast (ICD-10-PCS; 2017-03-04)
PROC: 3E0R3BZ Introduction of Anesthetic Agent into Spinal Canal, Percutaneous Approach (ICD-10-PCS; 2017-03-04)
PROC: 3E0U33Z Introduction of Anti-inflammatory into Joints, Percutaneous Approach (ICD-10-PCS; 2017-03-04)
DX: A41.53 Sepsis due to Serratia (principal); R65.21 Severe sepsis with septic shock; G93.40 Encephalopathy, unspecified; E87.2 Acidosis; N17.9 Acute kidney failure, unspecified; G45.9 Transient cerebral ischemic attack, unspecified; I50.22 Chronic systolic (congestive) heart failure; D61.818 Other pancytopenia; M70.61 Trochanteric bursitis, right hip; M47.816 Spondylosis without myelopathy or radiculopathy, lumbar region; E83.39 Other disorders of phosphorus metabolism; I25.10 Atherosclerotic heart disease of native coronary artery without angina pectoris; J44.9 Chronic obstructive pulmonary disease, unspecified; I25.5 Ischemic cardiomyopathy; F41.9 Anxiety disorder, unspecified; F32.9 Major depressive disorder, single episode, unspecified; E87.6 Hypokalemia; E78.5 Hyperlipidemia, unspecified; I71.4 Abdominal aortic aneurysm, without rupture; K59.00 Constipation, unspecified; K21.9 Gastro-esophageal reflux disease without esophagitis; K64.9 Unspecified hemorrhoids; Z95.5 Presence of coronary angioplasty implant and graft; Z95.1 Presence of aortocoronary bypass graft; Z95.810 Presence of automatic (implantable) cardiac defibrillator; Z96.611 Presence of right artificial shoulder joint; Z79.82 Long term (current) use of aspirin; Z82.49 Family history of ischemic heart disease and other diseases of the circulatory system; Z87.891 Personal history of nicotine dependence